=== PATIENT | male | born 1985 | race Caucasian/White ===

== ENCOUNTER 2020-05-11 18:09 | Emergency (ER) | payer OTHER, SELFPAY ==
[2020-05-11 18:20] VITALS: BP 131/74; PULSE 104; RESP 20; TEMP 35.7; O2SAT 97
[2020-05-11 18:33] LABS: Basophils Percent Auto 0.3 % (0.2-1.2); Eosinophils Percent Auto 0.3 % (0-4.4); Hematocrit 44.7 % (42.0-52.0); Hemoglobin 14.9 g/dL (14.0-18.0); Immature Granulocyte Absolute 0.04 K/mm3 (0.00-0.031); Immature Granulocyte Percent A 0.3 % (0-0.5); Lymphocytes Absolute Auto 2.26 K/mm3 (0.9-3.2); Lymphocytes Percent Auto 19.6 % (18.3-44.2); Mean Corpuscular HGB Conc 33.3 g/dl (32-36); Mean Corpuscular Volume 90.1 fl (80-100); Monocytes Absolute Auto 0.7 K/mm3 (0.1-0.6); Monocytes Percent Auto 6.1 % (2.6-8.5); Neutrophils Absolute Auto 8.5 K/mm3 (1.3-6.7); Neutrophils Percent Auto 73.4 % (45.5-73.1); Platelet Count Result 224 k/mm3 (150-375); Red Blood Count 4.96 M/mm3 (4.6-6.20); Red Cell Distribution Width 13.4 % (11.5-14.5); White Blood Count 11.6 K/mm3 (4.5-10.0)
[2020-05-11 18:42] LABS: Prothrombin Time 13.3 Seconds (11.1-14.7)
[2020-05-11 18:43] LABS: Partial Thromboplastin Time 25.6 SECONDS (22.3-36.8)
[2020-05-11 18:47] LABS: Alanine Aminotransferase 30 U/L (4-50); Albumin Level 4.5 g/dL (3.5-5.1); Alkaline Phosphatase 71 U/L (38-126); Anion Gap 8 mmol/L (8-16); Aspartate Amino Transferase 42 U/L (17-59); Bilirubin,Total 0.2 mg/dL (0.2-1.3); Blood Urea Nitrogen 13 mg/dL (9-20); Calcium 9.5 mg/dL (8.4-10.2); Carbon Dioxide 28 mmol/L (22-30); Chloride 103 mmol/L (98-107); Estimated CRCL calculation 125 ml/min; Estimated Glomerular Filt Rate > 60; Glucose 108 mg/dL (75-110); Potassium 3.6 mmol/L (3.4-5.0); Sodium 139 mmol/L (137-145)
--- NOTE | 2020-05-11 20:36 | ED.GENADULT ---
HPI - General Adult General Chief complaint: GI Bleed Stated complaint: rectal bleeding Time Seen by Provider: 05/11/20 20:08 Source: patient History of Present Illness HPI narrative: Patient is a 34 y/o male complaining of rectal bleeding starting 2 days ago. He states that the bleeding is bright red blood. There is no alleviating or exacerbating factor. He has no abdominal pain, constipation or diarrhea. He was recently seen at OSH for same and had labs and CT. He was told those tests were unremarkable. Related Data Home Medications Medication Instructions Recorded Confirmed No Home Medications 05/11/20 05/11/20 Allergies Allergy/AdvReac Type Severity Reaction Status Date / Time No Known Allergies Allergy Verified 12/04/14 18:00 Review of Systems Constitutional: Constitutional: Denies chills, Denies fever(s), Denies headache(s) and Denies weakness Eyes: Eyes: Denies blurry vision ENT: Denies headache(s) and Denies neck pain Cardiovascular: Cardiovascular: Denies chest pain and Denies dyspnea Respiratory: Respiratory: Denies cough and Denies dyspnea Gastrointestinal: Gastrointestinal: Denies abdominal pain, Reports hematochezia, Denies diarrhea, Denies nausea and Denies vomiting Genitourinary: Genitourinary: Denies hematuria and Denies dysuria Musculoskeletal: Musculoskeletal: Denies back pain and Denies neck pain Neurologic: Denies headache(s) and Denies weakness Exam Const: General: no acute distress and well developed Orientation/consciousness: oriented to person, oriented to place, oriented to time and patient oriented x3 HENMT: Head: normocephalic Ears: external ears normal General nose exam: Normal external nose present Eyes: General: appearance normal, both eyes and all related structures Conjunctivae: conjunctivae normal Neck: Neck: normal visual inspection and full ROM Chest: Chest palpation & inspection: normal inspection of the chest and no tenderness Resp: Effort & Inspection: normal respiratory effort Auscultation: clear to auscultation bilaterally Cardio: Rate: regular rate Rhythm: regular rhythm GI: GI Palp: No abdominal tenderness and Yes Soft to palpation Skin: General skin exam: normal color and turgor normal Neuro: General: oriented to person, oriented to place, oriented to time and patient oriented x3 Cognition (Neuro): normal cognition Extrem: General: normal to inspection, full ROM and no pedal edema Psych: Appearance: grossly normal Mental Status: mental status grossly normal Affect: normal affect Course Consultations Consultation #1: Discussed with Dr. Doherty, who agrees with plan for discharge and will follow up with patient for outpatient colonoscopy. Date: 05/11/20 Time: 20:38 Vital Signs Vital signs: Vital Signs Temperature 35.7 C L 05/11/20 18:20 Pulse Rate 104 H 05/11/20 18:20 Respiratory Rate 20 05/11/20 18:20 Blood Pressure 131/74 05/11/20 18:20 Pulse Oximetry 97 05/11/20 18:20 Temperature 35.7 C L 05/11/20 18:20 Pulse Rate 78 05/11/20 21:33 Respiratory Rate 18 05/11/20 21:33 Blood Pressure 118/79 05/11/20 21:33 Pulse Oximetry 98 05/11/20 21:33 Medical Decision Making Vital Signs Vital Signs: Vital Signs Temperature 35.7 C L 05/11/20 18:20 Pulse Rate 104 H 05/11/20 18:20 Respiratory Rate 20 05/11/20 18:20 Blood Pressure 131/74 05/11/20 18:20 Pulse Oximetry 97 05/11/20 18:20 Temperature 35.7 C L 05/11/20 18:20 Pulse Rate 78 05/11/20 21:33 Respiratory Rate 18 05/11/20 21:33 Blood Pressure 118/79 05/11/20 21:33 Pulse Oximetry 98 05/11/20 21:33 Lab Data Result diagrams: 05/11/20 18:27 05/11/20 18:27 Labs: Lab Results 05/11/20 05/11/20 05/11/20 Range/Units 18:27 18:27 18:27 WBC 11.6 H (4.5-10.0) K/mm3 RBC 4.96 (4.6-6.20) M/mm3 Hgb 14.9 (14.0-18.0) g/dL Hct 44.7 (42.0-52.0) % MCV 90.1 (80-100) fl MCH
[2020-05-11 20:49] LABS: Add Urine Microscopic? NO; Appearance Urine Clear (Clear); Bilirubin Urine Negative (Negative); Blood Urine Negative (Negative); Color Urine Yellow (Yellow); Glucose Urine UA Negative (Negative); Ketones Urine Negative (Negative); Leukocyte Esterase Ur Negative LEU/UL (Negative); Nitrate Urine Negative (Negative); Protein Urine Negative (Negative); Specific Grav Ur 1.018 (1.001-1.035); Urobilinogen Urine Negative mg/dL (<2.0)
[2020-05-11 21:33] VITALS: BP 118/79; PULSE 78; RESP 18; O2SAT 98
== END 2020-05-11 21:34 | disposition home or self-care (01) ==
PROVIDERS: Emergency Provider Emergency Medicine
DX: K62.5 Hemorrhage of anus and rectum (principal)
CPT/HCPCS: 36415; 80053; 81003; 85025; 85610; 85730; 86850; 86900; 86901; 99283

== ENCOUNTER 2020-05-31 07:28 | Outpatient (CLI) | payer OTHER, SELFPAY ==
--- NOTE | ~2020-05-31 | XR_ITS ---
BARIUM ENEMA-AIR CONTRAST INDICATION: Blood in stool. TECHNIQUE: Examination of the colon utilizing air-contrast barium enema technique. COMPARISON: CT dated 12/04/2014 FINDINGS: The entire colon was filled, distending normally. No extrinsic mass effect is noted. The haustral pattern appears normal. There is no evidence of polyp, stricture, extravasation, obstructio n or persistent mucosal abnormality. The appendix is visualized. IMPRESSION: 1:Unremarkable colon. Reviewed, dictated and finalized at location A. IMPRESSION: 1:Unremarkable colon.
== END 2020-05-31 07:29 | disposition home or self-care (01) ==
PROVIDERS: Visit Provider Internal Medicine Gastroenterology
DX: R63.4 Abnormal weight loss (principal); Z53.9 Procedure and treatment not carried out, unspecified reason
CPT/HCPCS: 74280

== ENCOUNTER 2020-06-19 10:14 | Outpatient (CLI) | payer OTHER, SELFPAY | END 2020-06-19 10:15 | disposition home or self-care (01) | PROVIDERS: Visit Provider Internal Medicine Gastroenterology | DX: R19.4 Change in bowel habit (principal) | CPT/HCPCS: 36415; 86003 ==

== ENCOUNTER 2021-03-16 11:04 | Emergency (ER) | payer OTHER, SELFPAY ==
[2021-03-16 12:06] VITALS: BP 122/77; PULSE 56; RESP 16; TEMP 37; O2SAT 98
--- NOTE | 2021-03-16 15:06 | PC.NURSE ---
pt seen in triage bay by carlos manuel
--- NOTE | 2021-03-16 15:06 | ED.GENADULT ---
HPI - General Adult General Chief complaint: Upper Respiratory Infection <EDU Cordova Last Filed: 03/16/21 15:16> Stated complaint: vomiting/guardado <EDU Cordova Last Filed: 03/16/21 15:16> Time Seen by Provider: 03/16/21 15:05 <EDU Cordova Last Filed: 03/16/21 15:16> Source: patient <EDU Cordova Last Filed: 03/16/21 15:16> Mode of arrival: ambulatory <EDU Cordova Filed: 03/16/21 15:16> Limitations: no limitations <EDU Cordova Filed: 03/16/21 15:16> History of Present Illness HPI narrative: Patient with CC of 3 days cough, congestion, body aches. Had a few episodes of vomiting this morning- no abdominal pain. Denies SOB, chest pain, neurlogical deficits. Patient states his friend is suspected to have COVID as well with the same symptoms. Patient Not vaccinated against COVID OR FLU. <EDU Cordova Last Filed: 03/16/21 15:16> Related Data Allergies/adverse reactions: Allergies Allergy/AdvReac Type Severity Reaction Status Date / Time No Known Allergies Allergy Verified 12/04/14 18:00 <EDU Cordova Last Filed: 03/16/21 15:16> Review of Systems Review of Systems: CONSTITUTIONAL: Report body aches Denies fever, chills, or sweats. EYES: Denies visual changes, redness, or discharge. ENT: Reports rhinorrhea, congestion, Denies sore throat, or otalgia. CARDIOVASCULAR: Denies chest pain, palpitations, or edema. RESPIRATORY: Reports cough Denies dyspnea. GASTROINTESTINAL: Reports nausea, vomitingx2 Denies abdominal pain or diarrhea. GENITOURINARY: Denies dysuria or hematuria. SKIN: Denies rash or itching. MUSCULOSKELETAL: Denies back pain, myalgia, or joint pain NEUROLOGIC: Denies headache, numbness, dizziness, or weakness. PSYCHIATRIC: Denies anxiety or depression. <EDU Cordova Filed: 03/16/21 15:16> Exam Narrative: GENERAL: Well-appearing, well-nourished. HEAD: Normocephalic, atraumatic. CHEST: Clear to auscultation. No respiratory distress. No tachypnea HEART: Regular rate and rhythm. EXTREMITIES: No acute changes in ROM. No edema. SKIN: Warm, dry, no rash. NEURO: Alert and oriented x3. PSYCH: Normal mood and affect. <True Herrera PA-C - Last Filed: 03/16/21 15:16> Course Vital Signs Vital signs: Vital Signs Temperature 98.6 F 03/16/21 12:06 Pulse Rate 56 L 03/16/21 12:06 Respiratory Rate 16 03/16/21 12:06 Blood Pressure 122/77 03/16/21 12:06 Pulse Oximetry 98 03/16/21 12:06 Temperature 98.6 F 03/16/21 12:06 Pulse Rate 56 L 03/16/21 12:06 Respiratory Rate 16 03/16/21 12:06 Blood Pressure 122/77 03/16/21 12:06 Pulse Oximetry 98 03/16/21 12:06 <True Herrera PA-C - Last Filed: 03/16/21 15:16> Medical Decision Making MDM Narrative Medical decision making narrative: Prescribed zofran for nausea and vomiting. Patient not having persistent vomiting. Can handle PO intake. Patient refused flu test. Patient vitals are stable. Patient not hypoxic or toxic. Patient tested for Covid and given quarantine instructions and return ER instructions. <True Herrera PA-C - Last Filed: 03/16/21 15:16> Vital Signs Vital Signs: Vital Signs Temperature 98.6 F 03/16/21 12:06 Pulse Rate 56 L 03/16/21 12:06 Respiratory Rate 16 03/16/21 12:06 Blood Pressure 122/77 03/16/21 12:06 Pulse Oximetry 98 03/16/21 12:06 Temperature 98.6 F 03/16/21 12:06 Pulse Rate 56 L 03/16/21 12:06 Respiratory Rate 16 03/16/21 12:06 Blood Pressure 122/77 03/16/21 12:06 Pulse Oximetry 98 03/16/21 12:06 <True Herrera PA-C - Last Filed: 03/16/21 15:16> Lab Data Labs: Lab Results 03/16/21 Range/Units 15:09 SARS-CoV-2 RNA (RT-PCR) Pending <True Herrera PA-C - Last Filed: 03/16/21 15:16> Discharge Plan Discharge Clinical Impression: COVID-19 <True Marin
[2021-03-17 14:36] LABS: SARS-CoV-2 RNA PCR Negative
== END 2021-03-16 15:12 | disposition home or self-care (01) ==
PROVIDERS: Physician Assistant; Emergency Provider General Practice
DX: U07.1 COVID-19 (principal)
CPT/HCPCS: 99283; C9803; U0003; U0005

== ENCOUNTER 2021-04-28 11:03 | Emergency (ER) | payer OTHER, SELFPAY ==
[2021-04-28 11:07] VITALS: BP 120/69; PULSE 77; RESP 18; TEMP 37.3; O2SAT 99
--- NOTE | 2021-04-28 11:19 | PC.NURSE ---
Pt states his goal today is to get a COVID test for work. States my nausea will pass and I haven't been throwing up a lot
--- NOTE | 2021-04-28 11:35 | PC.NURSE ---
Rapid COVID sent to lab.
[2021-04-28 11:52] LABS: EDCOVIDSCREEN Negative (Negative)
[2021-04-28 12:52] LABS: Basophils Absolute Auto 0.1 K/mm3 (0.0-0.1); Basophils Percent Auto 0.7 % (0.2-1.2); Eosinophils Absolute Auto 0.1 K/mm3 (0-0.3); Eosinophils Percent Auto 1.5 % (0-4.4); Hematocrit 45.9 % (42.0-52.0); Hemoglobin 15.3 g/dL (14.0-18.0); Immature Granulocyte Absolute 0.02 K/mm3 (0.00-0.031); Immature Granulocyte Percent A 0.2 % (0-0.5); Lymphocytes Absolute Auto 2.21 K/mm3 (0.9-3.2); Lymphocytes Percent Auto 24.1 % (18.3-44.2); Mean Corpuscular HGB Conc 33.3 g/dl (32-36); Mean Corpuscular Hemoglobin 30.1 pg (26-34); Mean Corpuscular Volume 90.4 fl (80-100); Mean Platelet Volume 9.9 fl (7.4-10.4); Monocytes Absolute Auto 0.6 K/mm3 (0.1-0.6); Monocytes Percent Auto 6.6 % (2.6-8.5); Neutrophils Absolute Auto 6.1 K/mm3 (1.3-6.7); Neutrophils Percent Auto 66.9 % (45.5-73.1); Platelet Count Result 252 k/mm3 (150-375); Red Blood Count 5.08 M/mm3 (4.6-6.20); Red Cell Distribution Width 13.6 % (11.5-14.5); White Blood Count 9.2 K/mm3 (4.5-10.0)
[2021-04-28 12:55] LABS: Add Urine Microscopic? NO; Appearance Urine Clear (Clear); Bilirubin Urine Negative (Negative); Blood Urine Negative (Negative); Color Urine Yellow (Yellow); Glucose Urine UA Negative (Negative); Ketones Urine Negative (Negative); Leukocyte Esterase Ur Negative LEU/UL (Negative); Nitrate Urine Negative (Negative); Protein Urine Negative (Negative); Specific Grav Ur 1.017 (1.001-1.035); Urobilinogen Urine Negative mg/dL (<2.0)
--- NOTE | 2021-04-28 13:00 | ED.GENADULT ---
HPI - General Adult General Chief complaint: Unspecified Stated complaint: Covid-19 ss requesting test Time Seen by Provider: 04/28/21 11:11 Source: patient Mode of arrival: ambulatory Limitations: no limitations History of Present Illness HPI narrative: Pt. presents to the ER with complaints of having a headache and nausea without any fevers, vomiting or diarrhea. He has been exposed to COVID by his significant other one week ago and he is not vaccinated. He has no overt abdominal pain. Onset (ago): day(s) (2) Location: head Radiation: non-radiation Severity: mild Severity scale (1-10): 2 Quality: aching Pain Consistency: constant Relieving factors: none Exacerbating factors: none Associated symptoms: denies other symptoms Treatments prior to arrival: none Related Data Home Medications Medication Instructions Recorded Confirmed No Home Medications 04/28/21 04/28/21 Allergies Allergy/AdvReac Type Severity Reaction Status Date / Time No Known Allergies Allergy Verified 12/04/14 18:00 Review of Systems Review of Systems: All systems reviewed & are unremarkable except as noted in HPI and below Constitutional: Constitutional: Reports as per HPI, Denies body ache(s), Denies chills, Denies fatigue, Denies fever(s), Denies lethargy, Denies malaise, Denies poor appetite and Denies weakness Eyes: Eyes: Reports as per HPI ENT: Reports system reviewed and no additional complaints, except as documented Cardiovascular: Cardiovascular: Reports as per HPI, Denies chest pain and Denies chest pain at rest Respiratory: Respiratory: Reports as per HPI and Denies no additional respiratory complaints Gastrointestinal: Gastrointestinal: Reports as per HPI and Denies abdominal pain Musculoskeletal: Musculoskeletal: Denies back pain and Denies myalgias Neurologic: Reports as per HPI, Denies confusion, Denies dizziness and Denies syncope Psychiatric: Psychiatric: Reports no additional psychiatric complaints Endocrine: Endocrine: Reports no additional endocrine complaints Hematologic/Lymphatic: Hematologic/Lymphatic: Reports no additional hematologic/lymphatic complaints Allergic/Immunologic: Allergic/Immunologic: Reports no additional allergic/immunologic complaints Exam Const: General: cooperative, healthy appearing, comfortable, no acute distress and well developed Nutritional Appearance: average body habitus Orientation/consciousness: patient oriented x3 Limitations: no limitations HENMT: Head: normal to inspection Ears: hearing grossly normal bilaterally General nose exam: Normal external nose present and Normal nasal mucous membranes and turbinates present Face and sinus: normal facial exam Mouth: Yes Normal oral and palatal mucosa present and Yes moist mucous membranes Teeth and gingiva: dentition normal Throat: posterior oropharynx normal, tonisls abnormal and uvula midline Eyes: General: appearance normal, both eyes and all related structures Conjunctivae: conjunctivae normal Neck: Neck: normal visual inspection, full ROM, no lymphadenopathy, no meningeal signs, trachea midline, supple, anterior neck swelling and no lymphadenopathy noted Lymphatic: no lymphadenopathy noted Resp: Effort & Inspection: normal respiratory effort, able to speak in complete sentences, normal respiratory pattern and no cough Auscultation: clear to auscultation bilaterally and no bronchial breath sounds Cardio: Rate: regular rate Rhythm: regular rhythm Heart sounds: S1 normal heart sound present and S2 normal heart sound present GI: Inspection: normal to inspection Auscultation: normal bowel sounds Rectal Exam: deferred Back/Spine/Pelvis: Back: no CVA tenderness Skin: General skin exam: normal color Trauma: no lacerations or abrasions Wounds: no wounds Hair: normal Neuro: General: patient oriented x3 and gait normal Speech: normal speech Gait exam (Neuro): Normal gait present Sensory Exam: normal sensation Extrem: Gener
[2021-04-28 13:03] LABS: Alanine Aminotransferase 27 U/L (4-50); Alkaline Phosphatase 68 U/L (38-126); Anion Gap 10 mmol/L (8-16); Aspartate Amino Transferase 33 U/L (17-59); Bilirubin,Total 0.2 mg/dL (0.2-1.3); Blood Urea Nitrogen 10 mg/dL (9-20); Calcium 9.1 mg/dL (8.4-10.2); Carbon Dioxide 24 mmol/L (22-30); Chloride 108 mmol/L (98-107); Estimated CRCL calculation 119 ml/min; Estimated Glomerular Filt Rate > 60; Glucose 138 mg/dL (65-110); Lipase 36 U/L (23-300); Sodium 142 mmol/L (137-145)
[2021-04-28 13:18] VITALS: BP 128/80; PULSE 78; RESP 18; O2SAT 99
== END 2021-04-28 13:18 | disposition home or self-care (01) ==
PROVIDERS: Emergency Provider Nurse Practitioner Adult Health
DX: B34.9 Viral infection, unspecified (principal); Z20.822 Contact with and (suspected) exposure to COVID-19
CPT/HCPCS: 36415; 80053; 81003; 83690; 85025; 87426; 99283; C9803

== ENCOUNTER 2022-11-07 21:34 | Emergency (ER) | payer OTHER, SELFPAY ==
--- NOTE | ~2022-11-07 | XR_ITS ---
Right foot Technique: AP, oblique, and lateral views were obtained. Clinical History: Swelling, pain Findings: No acute fracture or dislocation is seen in the foot itself. Osseous alignment is anatomic. Joint spaces are preserved without erosive or degenerative change. There is soft tissue swelling ove r the dorsal aspect of the foot. Impression: Dorsal foot soft tissue swelling. Reviewed, dictated and finalized at location . Impression: Dorsal foot soft tissue swelling.
--- NOTE | ~2022-11-07 | XR_ITS ---
Right ankle Technique: AP, oblique, and lateral views were obtained. Clinical History: Cellulitis, swelling COMPARISON: 06/30/2011 Findings: No acute fracture or dislocation is seen. Tibial intramedullary jaz with distal interlockin g screws, as well as medial malleolus screws, are stable from prior exam. 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 Old, healed fracture deformities of the mid tibial shaft and distal fibular shaft are unchanged. Ankle mortise and other visualized joint spaces are preserved. Soft tissues are otherwise unremarkable. Impression: No acute abnormality. 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 Reviewed, dictated and finalized at location . Impression: No acute abnormality. 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
[2022-11-07 21:39] VITALS: BP 144/86; PULSE 106; RESP 17; TEMP 36.6; O2SAT 98
[2022-11-08 01:19] VITALS: BP 124/75; PULSE 78; RESP 15; TEMP 36.3; O2SAT 100
[2022-11-08 05:10] VITALS: BP 137/85; PULSE 90; RESP 18; O2SAT 100
[2022-11-08 05:17] LABS: Basophils Percent Auto 0.5 % (0.2-1.2); Eosinophils Absolute Auto 0.1 K/mm3 (0-0.3); Eosinophils Percent Auto 0.9 % (0-4.4); Hematocrit 41.3 % (42.0-52.0); Hemoglobin 13.6 g/dL (14.0-18.0); Immature Granulocyte Absolute 0.05 K/mm3 (0.00-0.031); Immature Granulocyte Percent A 0.6 % (0-0.5); Lymphocytes Absolute Auto 1.83 K/mm3 (0.9-3.2); Lymphocytes Percent Auto 22.3 % (18.3-44.2); Mean Corpuscular HGB Conc 32.9 g/dl (32-36); Mean Corpuscular Hemoglobin 29.8 pg (26-34); Mean Corpuscular Volume 90.6 fl (80-100); Mean Platelet Volume 9.5 fl (7.4-10.4); Monocytes Absolute Auto 0.7 K/mm3 (0.1-0.6); Neutrophils Absolute Auto 5.5 K/mm3 (1.3-6.7); Neutrophils Percent Auto 66.7 % (45.5-73.1); Platelet Count Result 268 k/mm3 (150-375); Red Blood Count 4.56 M/mm3 (4.6-6.20); Red Cell Distribution Width 13.6 % (11.5-14.5); White Blood Count 8.2 K/mm3 (4.5-10.0)
[2022-11-08 05:30] LABS: Alanine Aminotransferase 27 U/L (6-50); Albumin Level 4.5 g/dL (3.5-5.1); Alkaline Phosphatase 85 U/L (38-126); Anion Gap 7 mmol/L (8-16); Aspartate Amino Transferase 36 U/L (17-59); Bilirubin,Total 0.6 mg/dL (0.2-1.3); Blood Urea Nitrogen 18 mg/dL (9-20); Calcium 9.6 mg/dL (8.4-10.2); Carbon Dioxide 31 mmol/L (22-30); Chloride 102 mmol/L (98-107); Estimated CRCL calculation 135 ml/min; Estimated Glomerular Filt Rate > 60; Glucose 102 mg/dL (65-110); Potassium 4.3 mmol/L (3.4-5.0); Sodium 140 mmol/L (137-145)
[2022-11-08 05:30] LABS: Lactic Acid Reflex 0.8 mmol/L (0.7-2.0)
--- NOTE | 2022-11-08 06:20 | ED.GENADULT ---
HPI - General Adult General Chief complaint: Extremity Injury, Lower Stated complaint: right ankle pain and swelling Time Seen by Provider: 11/08/22 03:57 History of Present Illness HPI narrative: Patient 37-year-old gentleman who presents the emergency department with chief complaint of right ankle and foot pain. Patient reports that he was just discharged from [facility] for cellulitis and reports that he was detained by the local Police Department. Patient reports that he has swelling and pain in his right foot and ankle the patient reports he has had prior surgeries there and also reports that he has had cellulitis in his right leg. Patient reports that he recently had a PICC line removed and reports that he is supposed to be taking his antibiotics. Related Data Home Medications Medication Instructions Recorded Confirmed No Home Medications 04/28/21 04/28/21 Allergies Allergy/AdvReac Type Severity Reaction Status Date / Time No Known Allergies Allergy Verified 12/04/14 18:00 Review of Systems Review of Systems: A 10 system review of systems was completed on the patient and is negative except for what is stated in the HPI. Nursing and ancillary documentation was reviewed. Exam Narrative: GENERAL: Well-appearing, well-nourished, and in no acute distress. HEAD: Normocephalic, atraumatic. EYES: PERRLA and EOMI. ENT: Nares clear, no rhinorrhea or epistaxis. Mucous membranes moist. NECK: Supple. CHEST: Clear to auscultation. No respiratory distress. HEART: Regular rate and rhythm. No murmur heard. Normal peripheral pulses. ABDOMEN: Soft, nontender, nondistended, normal active bowel sounds. EXTREMITIES: Normal range of motion there is an area of redness in the right lower extremity there is no lymphangitis there is no crepitance there is no fluctuance. There is swelling of the right ankle and right foot there is no bony step-off noted. No edema. SKIN: Warm, dry, no rash. NEURO: No focal deficits. Alert and oriented x3. PSYCH: Normal mood and affect. Course Vital Signs Vital signs: Vital Signs Temperature 36.6 C 11/07/22 21:39 Pulse Rate 106 H 11/07/22 21:39 Respiratory Rate 17 11/07/22 21:39 Blood Pressure 144/86 H 11/07/22 21:39 Pulse Oximetry 98 11/07/22 21:39 Oxygen Delivery Room Air 11/07/22 21:39 Temperature 36.3 C L 11/08/22 01:19 Pulse Rate 90 11/08/22 05:10 Respiratory Rate 18 11/08/22 05:10 Blood Pressure 137/85 11/08/22 05:10 Pulse Oximetry 100 11/08/22 05:10 Oxygen Delivery Room Air 11/07/22 21:39 Medical Decision Making MDM Narrative Medical decision making narrative: Differential diagnosis includes cellulitis, abscess, fracture, sprain Records were not able to be obtained from [facility] as they are currently undergoing a [employer] technology malfunction. Plan: X-rays were obtained of the right ankle and foot that showed no evidence of displaced fracture Labs were evaluated in the emergency department here that showed a normal white blood cell count normal lactate and normal electrolytes. Vital Signs Vital Signs: Vital Signs Temperature 36.6 C 11/07/22 21:39 Pulse Rate 106 H 11/07/22 21:39 Respiratory Rate 17 11/07/22 21:39 Blood Pressure 144/86 H 11/07/22 21:39 Pulse Oximetry 98 11/07/22 21:39 Oxygen Delivery Room Air 11/07/22 21:39 Temperature 36.3 C L 11/08/22 01:19 Pulse Rate 90 11/08/22 05:10 Respiratory Rate 18 11/08/22 05:10 Blood Pressure 137/85 11/08/22 05:10 Pulse Oximetry 100 11/08/22 05:10 Oxygen Delivery Room Air 11/07/22 21:39 Lab Data 11/08/22 05:10 11/08/22 05:10 Labs: Lab Results 11/08/22 11/08/22 Range/Units 05:08 05:10 WBC 8.2 (4.5-10.0) K/mm3 RBC 4.56 L (4.6-6.20) M/mm3 Hgb 13.6 L (14.0-18.0) g/dL Hct 41.3 L (42.0-52.0) % MCV 90.6 (80-100) fl MCH 29.8 (26-34) pg MCHC 32.9
== END 2022-11-08 06:37 ==
PROVIDERS: Emergency Provider Emergency Medicine
DX: S93.401A Sprain of unspecified ligament of right ankle, initial encounter (principal); S96.911A Strain of unspecified muscle and tendon at ankle and foot level, right foot, initial encounter; S93.601A Unspecified sprain of right foot, initial encounter; L03.115 Cellulitis of right lower limb; Y35.813A Legal intervention involving manhandling, suspect injured, initial encounter
CPT/HCPCS: 36415; 73610; 73630; 80053; 83605; 85025; 99283

== ENCOUNTER 2025-03-02 13:30 | Emergency (ER) | payer OTHER, SELFPAY ==
[2025-03-02 13:40] VITALS: BP 130/86; PULSE 98; RESP 16; TEMP 36.9; O2SAT 100
--- NOTE | 2025-03-02 13:41 | ED_ITS ---
HPI - URI/Sore Throat General Chief Complaint: Upper Respiratory Infection Stated Complaint: runny nose/cough Time Seen by Provider: 03/02/25 13:41 Source: patient, RN notes reviewed and old records reviewed Mode of arrival: ambulatory Limitations: no limitations History of Present Illness HPI Narrative: 39-year-old male presents to the [facility] with complaints of runny nose and a cough that started 2 days ago. Reports feeling fevers, fatigue. Has drank Pedialyte, no other treatment prior to arrival. Onset (ago): day(s) (2) Related Data Home Medications ?Medication ?Instructions ?Recorded ?Confirmed ?Last Taken ?Type No Home Medications 04/28/21 03/02/25 U nknown History Allergies Allergy/AdvReac Type Severity Reaction Status Date / Time No Known Allergies Allergy Verified 03/02/25 13:51 Review of Systems Review of Systems: All systems reviewed & are unremarkable except as noted in HPI and below Constitutional: Constitutional: Reports no additional constitutional complaints ENT: Reports as per HPI and Reports nasal discharge Cardiovascular: Cardiovascular: Reports no additional cardiovascular complaints, Denies chest pain and Denies dyspnea Respiratory: Respiratory: Reports as per HPI, Denies chest congestion, Reports cough and Denies dyspnea Musculoskeletal: Musculoskeletal: Reports no additional musculoskeletal complaints Integumentary/Breasts: Skin/Breast: Reports system reviewed and no additional complaints, except as docu PMFSH Comments At the time of my signature, I reviewed and agree with the nursing past medical, surgical, social, and family history. There is no relevant family history pertinent to the patient complaint. Exam Const: General: cooperative, healthy appearing, comfortable, no acute distres s, well developed, alert and well nourished Nutritional Appearance: well nourished Orientation/consciousness: patient oriented x3 Limitations: no limitations HENMT: Head: normal to inspection Ears: hearing grossly normal bilaterally, external ears normal, TM's normal bilaterally, EAC's normal, mastoids normal and no periauricular adenopathy Face/Nose/Sinus: Nasal discharge present clear bilateral and sinuses nontender Face and sinus: normal facial exam, sinuses nontender and face symmetric Mouth: Yes Normal oral and palatal mucosa present, Yes lip normal, Yes tongue normal and Yes moist mucous membranes Throat: posterior oropharynx normal, uvula midline, postnasal drainage and no uvular edema Eyes: General: appearance normal, both eyes and all related structures Alignment and Position: alignment normal Neck: Neck: normal visual inspection, full ROM, no lymphadenopathy and no meningeal signs Chest: Chest palpation & inspection: normal inspection of the chest Resp: Effort & Inspection: normal respiratory effort and able to speak in complete sentences Auscultation: clear to auscultation bilaterally, no crackles, no rales, no rhonchi and no wheezes Cardio: Rate: regular rate Skin: General skin exam: normal color and no rashes or lesions noted Neuro: General: patient oriented x3, gait normal, moves all extremities and no meningeal signs Cognition (Neuro): normal cognition Speech: normal speech Gait exam (Neuro): Normal gait present Extrem: General: normal to inspection, full ROM, capillary refill normal and normal gait Psych: Appearance: grossly normal and well kempt Mental Status: mental status grossly normal Speech and movement: Normal speech and movement present and Clear speech present Affect: normal affect Attitude: cooperative Course Course Level of Care: Express Care Visit Vital Signs Vital signs: Vital Signs Temperature 98.5 F 03/02/25 13:40 Pulse Rate 98 03/02/25 13:40 Respiratory Rate 16 03/02/25 13:40 Blood Pressure 130/86 03/02/25 13:40 Pulse Oximetry 100 03/02/25 13:40 Oxygen Delivery Room Air 03/02/25 13:40 Temperature 98.5 F 03/02/25 13:40 Pulse Rate 98 03/02/25 13:40 Respiratory Rate 16 03/02/25 13:40 Blood Pressure 130/86 03/02/25 13:40 Pulse Oximetry 100 03/02/25 13:40 Oxygen Delivery Room Air 03/02/25 13:40 reviewed MDM MDM Narrative Medical decision making narrative: Patient sitting in exam room. Patient is nontoxic, vitals stable. Patient presents 2 day history of fatigue, runny nose and cough. Has only drank Pedialyte, no other treatment prior to arrival. , flu, COVID and strep were all negative. Patient appropriate for outpatient treatment with close follow-up Discharge instructions reviewed with patient, as well as provided in writing per nursing staff. The instructions also include specific and strict return/GO TO THE ER as well as f/u information. All questions have been answered, and the patient deny any further questions with discharge and discharge plan. Some parts of this dictation were generated by voice recognition software and may contain typographical and/or grammatical inaccuracies. Differential Diagnosis Differential Diagnosis: Differential diagnostic considerations for upper respiratory infection include upper respiratory infection, croup, otitis media, sinusitis, viral infection, bronchitis, influenza, pharyngitis, strep, uvulitis.? Lab Data Labs: Lab Results 03/02/25 03/02/25 Range/Units 14:10 14:16 POC Influenza A Ag Negative Negative (Negative) POC Influenza B Ag Negative Negative (Negative) POC SARS CoV-2 Ag Negative Negative (Negative) POC Grp A Strep Screen Negative Negative (Negative) reviewed Discharge Plan Discharge Clinical Impression: Sinusitis, Viral infection Patient Disposition: Home Condition: Stable Instructions: Sinusitis (ED), Viral Syndrome (ED) Additional Instructions: Your rapid strep swab was negative today at [facility]. A throat culture will be sent to the laboratory for further testing. If the test is positive, you will receive a phone call within 48 hours and an appropriate antibiotic will be initiated at that time. Your rapid COVID test were negative Your rapid flu test was negative Your symptoms are likely due to a viral illness, which is not treated with antibiotics. Typically viral infections last 7-10 days, can linger for couple of weeks. It is very important to treat your symptoms. Drink plenty of water, Gatorade, Pedialyte, ice pops or Jell-O. -Alternate Tylenol and Motrin per package directions for fever or pain. You can alternate every 4 hours -Antihistamine medication such as Zyrtec/Claritin during the day can help improve symptoms. -doing daily nasal irrigations can help relieve pressure your sinuses. Things like a Neti pot -Use Flonase twice a day for 5 days then daily to help reduce the inflammation and dry up your sinuses. -You can also use Mucinex. Be sure to drink plenty of water with this medica tion at least 8 ounces with every dose and it is important to drink 8 to 10 glasses of water per day. Water is a natural decongestant -Eat and drink things that are easy to swallow, like tea or soup, or popsicles. -Oral rinses such as: Salt water gargles and/or may use topical anesthetic (eg. Chloraseptic spray) or lozenges to relieve dryness or throat pain). -Frequent hand washing or hand black topper is one of the best ways to prevent spread of infection. -Using a vaporizer or humidifier at night will also help thin secretions and help with coughing up phlegm. -Follow up with primary care provider in 7-10 days if condition is not improving - For new or worsening symptoms go directly to the nearest ER Patient Language: Andorran Prescriptions: No Action No Home Medications Follow-up/Referrals: PHYSICIAN,SPANISH INSTRUCTOR [Primary Care Provider, Internal Medicine] Vincenzo Salas MD [Physician, Family Practice] Stand Alone Forms: Work/School Release IP Time of Disposition: 14:07
[2025-03-02 14:19] LABS: EDCOVIDSCREEN Negative (Negative); EDINFLUASCREEN Negative (Negative); EDINFLUBSCREEN Negative (Negative); EDSTREPNEGPOS1 Negative (Negative)
[2025-03-02 14:19] LABS: EDCOVIDSCREEN Negative (Negative); EDINFLUASCREEN Negative (Negative); EDINFLUBSCREEN Negative (Negative); EDSTREPNEGPOS1 Negative (Negative)
== END 2025-03-02 14:15 | disposition home or self-care (01) ==
PROVIDERS: Emergency Provider Nurse Practitioner
DX: J32.9 Chronic sinusitis, unspecified (principal); B34.9 Viral infection, unspecified; Z20.822 Contact with and (suspected) exposure to COVID-19
CPT/HCPCS: 87081; 87426; 87804; 87880; 99213; G0463